=== PATIENT | female | born 1975 | race Two or more races ===

== ENCOUNTER 2019-12-26 13:23 | Emergency (ER) | payer BC, SELFPAY ==
[~2019-12-26] VITALS: Ht 165.1 cm; Wt 68.0 kg
[2019-12-26 13:40] VITALS: Ht 165.1 cm; Wt 68.0 kg
== END 2019-12-26 14:46 | disposition home or self-care (01) ==
LOC: ED 13:23
DX: U07.1 COVID-19 (principal); R06.02 Shortness of breath
CPT/HCPCS: Q0092